=== PATIENT | male | born 1995 | race Hispanic/Latino ===

== ENCOUNTER 2023-09-11 06:46 | Day surgery (SDC) | payer BC ==
[2023-09-05 12:25] VITALS: BP 148/89; PULSE 65; RESP 18
[2023-09-05 12:25] LABS: BASOPHILS # (AUTO) 0.04 K/uL (0.00-0.20); BASOPHILS % (AUTO) 0.5 % (0.0-5.0); EOSINOPHILS # (AUTO) 0.25 K/uL (0.00-0.70); EOSINOPHILS % (AUTO) 3.3 % (0.0-8.0); HEMATOCRIT 42.9 % (42-54); IMMATURE GRANULOCYTE ABSOLUTE 0.02 K/uL (0-1); LYMPHOCYTES # (AUTO) 2.3 K/uL (1.0-4.8); MEAN CORPUSCULAR HEMOGLOBIN 31.1 pg (27.0-33.0); MEAN CORPUSCULAR HGB CONC 34.7 g/dL (32.0-36.0); MEAN CORPUSCULAR VOLUME 89.6 fL (79-99); MONOCYTES # (AUTO) 0.7 K/uL (0.1-1.0); MONOCYTES % (AUTO) 9.2 % (3.0-13.0); NEUTROPHILS # (AUTO) 4.2 K/uL (1.8-7.7); NEUTROPHILS % (AUTO) 56.7 % (40.0-77.0); PLATELET COUNT (AUTO) 267 K/uL (130-400); RED BLOOD CELL COUNT(AUTO) 4.79 MIL/uL (4.50-6.20); RED CELL DISTRIBUTION WIDTH 12.6 % (11.0-15.5); WHITE BLOOD COUNT (AUTO) 7.5 K/uL (4.8-10.8)
[2023-09-05 12:33] LABS: CREATININE 0.9 mg/dL (0.5-1.3); POTASSIUM 4.3 mmol/L (3.5-5.1)
[2023-09-05 12:40] LABS: INR 0.99 (0.85-1.15); PROTHROMBIN TIME 10.7 SEC (9.6-11.6)
[2023-09-05 12:41] LABS: PARTIAL THROMBOPLASTIN TIME 29.8 SEC (26.3-35.5)
[~2023-09-11] VITALS: Ht 170.2 cm; Wt 78.7 kg
[2023-09-11] VITALS (17 sets, daily range): BP systolic 96–129; BP diastolic 49–82; PULSE 68–88; RESP 12–16
[2023-09-11] MEDS ORDERED: DEXAMETHASONE SOD PHOSPHATE 4 MG/ML 1ML VIAL ONE (07:24)
[2023-09-11] MEDS ORDERED: LIDOCAINE PF 100MG/5ML (2%) SYRINGE 5ML ONE (07:24)
[2023-09-11] MEDS ORDERED: PROPOFOL 10 MG/ML 20ML VIAL IV ONE (07:25)
[2023-09-11] MEDS ORDERED: ONDANSETRON 4MG INJ ONE (07:25)
[2023-09-11] MEDS ORDERED: MIDAZOLAM HCL 1 MG/ML 2ML VIAL ONE (07:25)
[2023-09-11] MEDS ORDERED: FENTANYL CITRATE PF 50 MCG/1 ML 2ML VIAL ONE ×2 (07:26→09:00)
[2023-09-11] MEDS ORDERED: KETOROLAC 30MG VIAL (30MG/ML) ONE (07:26)
[2023-09-11] MEDS: LACTATED RINGERS 1000ML 1,000 ML IV ONE (08:06)
[2023-09-11] MEDS: CEFAZOLIN SODIUM 2 GM VIAL ONE (08:06)
[2023-09-11] MEDS: BUPIVACAINE/PF 0.25% 30ML VIAL IJ ONE (09:08)
[2023-09-11] MEDS ORDERED: PHENYLEPHRINE HCL 10 MG/ML 1ML VIAL IV ONE (09:21)
[2023-09-11] MEDS: BACITRACIN 28.4 GM OINT TP ONE (09:45)
== END 2023-09-11 11:45 | disposition home or self-care (01) ==
LOC: DAH 06:46
PROVIDERS: ATTEND Urology
DX: N45.1 Epididymitis (principal); D40.10 Neoplasm of uncertain behavior of unspecified testis; Z79.01 Long term (current) use of anticoagulants
CPT/HCPCS: 80048; 85025; 85610; 85730; 36415; 54830; 88309; A6260; J1100; J7120 ×2; J3010 ×2; J0665; J2001; J2250; J2704; J2405; J1885; J2371; J0690; A4215; A4223; A4213; A4222; A4221; A4663; A4600; J3490